=== PATIENT | male | born 1955 | race Caucasian/White ===

== ENCOUNTER 2018-09-27 13:58 | Emergency (ER) | payer OTHER, SELFPAY ==
[2018-09-27 14:02] VITALS: BP 147/78; PULSE 71; RESP 18; TEMP 36.7; O2SAT 99
--- NOTE | 2018-09-27 14:14 | DI.RAD.S_ITS ---
PROCEDURE: XR CHEST 1V INDICATIONS: arrhythmia TECHNIQUE: One view of the chest was acquired. COMPARISON: None. FINDINGS: Surgical changes and devices: None. Lungs and pleura: No acute consolidation however a 6 mm nodule projects in the right lung base, technically indeterminate. No pleural effusions or pneumothorax. Mediastinum: Mediastinal contours appear normal. Heart size is normal. Bones and chest wall: No suspicious bony lesions. Overlying soft tissues appear unremarkable. IMPRESSION: No acute disease. Indeterminate subcentimeter nodular opacity projecting in the right lung base. Recommend followup with PA and lateral chest radiographs in 6 months to exclude early metastatic or malignant nodule. Dictated by: Paramjit Padilla M.D. on 09/27/2018 at 13:32 Approved by: Paramjit Padilla M.D. on 09/27/2018 at 13:36
[2018-09-27 14:26] LABS: Add Manual Diff / Slide Review NO; Basophils Absolute Auto 0 /uL (0-100); Basophils Percent Auto 0.6 % (0-2); Eosinophils Absolute Auto 0 /uL (0-450); Eosinophils Percent Auto 0.8 % (2-4); Hematocrit 42.2 % (41-53); Hemoglobin 14.6 g/dL (13.5-17.5); Lymphocytes Absolute Auto 1000 /uL (1100-4500); Lymphocytes Percent Auto 15.2 % (25-40); Mean Corpuscular HGB Conc 34.5 % (30-36); Mean Corpuscular Hemoglobin 28.1 PG (26-34); Mean Corpuscular Volume 81.5 fL (80-100); Monocytes Absolute Auto 900 /uL (0-900); Monocytes Percent Auto 13.2 % (3-14); Neutrophils Absolute Auto 4500 /uL (1500-7000); Neutrophils Percent Auto 70.2 % (50-75); Platelet Count 233 X10^3/uL (150-400); Red Blood Cell Count 5.18 X10^6/uL (4.5-5.9); White Blood Cell Count 6.5 X10^3/uL (4.5-11.0)
[2018-09-27 14:36] LABS: BUN Creatinine Ratio 23.3 (6-22); Blood Urea Nitrogen 21 mg/dL (9-20); Calcium 9.6 mg/dL (8.4-10.2); Carbon Dioxide 29 mmol/L (22-32); Chloride 104 mmol/L (98-107); Creatine Kinase 75 U/L (55-170); Estimated Glomerular Filt Rate > 60.0 mL/min (>60); Glucose 91 mg/dL (80-110); HEMOLYSIS < 15 (0-50); Magnesium 2.2 mg/dL (1.6-2.3); Potassium 4.1 mmol/L (3.4-5.1); Sodium 138 mmol/L (137-145)
[2018-09-27 14:48] LABS: Troponin I < 0.012 ng/mL (0.01-0.034)
--- NOTE | 2018-09-27 15:00 | ED.ARRPALP ---
HPI - Arrhythmia/Palpitations General Chief Complaint: Arrhythmia/Palpitations Stated Complaint: AFIB Time Seen by Provider: 09/27/18 14:59 Source: patient Mode of arrival: ambulatory Limitations: no limitations History of Present Illness HPI narrative: This is a 63-year-old male comes to the emergency department for complaint of fluttering in his chest. States occasionally he will have symptoms, he states usually less than 1 minute. But today patient episode that did not resolve. The e commerce marketing analyst saw him did EKG that looked like AFib sent him to the clinic on [facility]. They did EKG saw AFib. Told patient to come to emergency department here. Patient denies any syncope, no dizziness, no chest pain or shortness of breath. No nausea no vomiting. Sometimes feel little sweaty or hot but not at this time. He denies any swelling in his lower extremities. No issues with bowel movements or urination. Patient's Dr. Jung the about 2 weeks ago and had a Holter monitor which he got the report but no in reviewed the report with him. There was no AFib noted but some runs of either P 80 your normal sinus ventricular tachycardia. Patient states he takes lisinopril for blood pressure. He denies any surgeries. No allergies. No tobacco. He does drink about 3 cups daily and occasionally more of coffee. He normally has 1 alcoholic drink daily. Related Data Home Medications Medication Instructions Recorded Confirmed lisinopril 20 mg PO DAILY 09/27/18 Allergies Allergy/AdvReac Type Severity Reaction Status Date / Time No Known Drug Allergies Allergy Verified 09/27/18 14:02 Review of Systems Review of Systems ROS Unobtainable: All systems reviewed & are unremarkable except as noted in HPI and below Constitutional Denies chills, Denies fever(s), Denies lethargy and Denies weakness Cardiovascular Denies chest pain, Denies chest pain with activity, Denies syncope, Reports rapid heart rate, Denies edema, Denies irregular heart rhythm, Denies lightheadedness, Denies palpitations, Denies dyspnea, Denies dyspnea on exertion and Denies orthopnea Respiratory Denies chest congestion, Denies cough, Denies dyspnea and Denies dyspnea on exertion Gastrointestinal Gastrointestinal: Denies abdominal pain, Denies change in bowel habits, Denies diarrhea, Denies nausea and Denies vomiting Genitourinary Denies hematuria, Denies flank pain, Denies urinary hesitancy, Denies urinary incontinence and Denies urinary urgency Neurologic Denies syncope and Denies weakness Endocrine Denies palpitations [facility] Medical History (Updated 09/27/18 @ 16:16 by Andreia Glass DO) Hypertension (Chronic) Social History Smoking Status: Never smoker Social History (Updated 09/27/18 @ 16:12 by Andreia Glass DO) marital status: details: Lives on [employer]. Smoking Status: Never smoker alcohol intake: current substance use type: does not use Exam Narrative Exam Narrative: GENERAL: Alert and oriented x three, well-nourished, well-appearing male in no acute distress. HEENT: Head normocephalic, atraumatic, EOMI, pupils reactive, face symmetric, moist mucous membranes NECK: Supple, full range of motion CARDIOVASCULAR: Regular rate and rhythm without murmurs, rubs or gallops. No edema. RESPIRATORY: Breath sounds equal bilaterally, no wheezes rales or rhonchi. ABDOMEN: Soft, nontender. Normoactive bowel sounds all 4 quadrants. No guarding or rebound, rigidity, no mass : No CVA tenderness EXTREMITIES: Normal range of motion. Neurovascularly intact NEUROLOGICAL: Cranial nerves II through XII grossly intact. Moving all extremities SKIN: Warm, dry, no petechiae, no rashes or lesions. Initial Vital Signs Initial Vital Signs: Vital Signs Temperature 98.1 F 09/27/18 14:02 Pulse Rate 71 09/27/18 14:02 Respiratory Rate 18 09/27/18 14:02 Blood Pressure 147/78 H 09/27/18 14:02 Pulse Oximetry 99 09/27/18 14:02 Scores CHADS-VASc Congestive heart failure: no Hypertension: yes Age 75 years or older: no Diabetes mellitus: no Stroke, TIA, or TE: no Vascular disease: no Age 65 to 74 years: no Sex category (female): Male CHADS-VASc Score: 1 Course Orders Ordered: ED Orders 09/27/18 14:04 EKG-12 Lead Stat 09/27/18 14:14 XR chest 1V Stat 09/27/18 14:16 Basic Metabolic Panel Stat Complete Blood Count AUTO DIFF Stat Magnesium Stat Thyroid Stimulating Hormone Stat Troponin & CK Cardiac Panel Stat Discontinued Medications Sodium Chloride (Normal Saline 0.9%) 1,000 mls @ 150 mls/hr IV CONT ALISHA Vital Signs - 8 hr 09/27/18 14:02 09/27/18 15:02 09/27/18 16:00 Temperature 98.1 F Pulse Rate 71 66 67 Respiratory Rate 18 14 20 Blood Pressure 147/78 H Blood Pressure [Left Arm] 129/77 143/86 H Pulse Oximetry 99 98 99 MDM - Arrhythmia/Palpitations Lab Data Attestation: I reviewed the patient's lab results. Result diagrams: 09/27/18 14:16 09/27/18 14:16 Lab Results 09/27/18 09/27/18 09/27/18 Range/Units 14:16 14:16 14:16 WBC 6.5 (4.5-11.0) X10^3/uL RBC 5.18 (4.5-5.9) X10^6/uL Hgb 14.6 (13.5-17.5) g/dL Hct 42.2 (41-53) % MCV 81.5 (80-100) fL MCH 28.1 (26-34) PG MCHC 34.5 (30-36) % RDW 13.0 (11.6-14.8) % Plt Count 233 (150-400) X10^3/uL Neut % (Auto) 70.2 (50-75) % Lymph % (Auto) 15.2 L (25-40) % [place] % (Auto) 13.2 (3-14) % Eos % (Auto) 0.8 L (2-4) % Baso % (Auto) 0.6 (0-2) % Neut # (Auto) 4500 (8226-7344) /uL Lymph # (Auto) 1000 L (6200-5724) /uL [place] # (Auto) 900 (0-900) /uL Eos # (Auto) 0 (0-450) /uL Baso # (Auto) 0 (0-100) /uL Sodium 138 (137-145) mmol/L Potassium 4.1 (3.4-5.1) mmol/L Chloride 104 (98-107) mmol/L Carbon Dioxide 29 (22-32) mmol/L BUN 21 H (9-20) mg/dL Creatinine 0.90 (0.66-1.25) mg/dL Estimated GFR > 60.0 (>60) mL/min BUN/Creatinine Ratio 23.3 H (6-22) Glucose 91 (80-110) mg/dL Calcium 9.6 (8.4-10.2) mg/dL Magnesium 2.2 (1.6-2.3) mg/dL Total Creatine Kinase 75 (55-170) U/L CK-MB (CK-2) TNP CK-MB (CK-2) Rel Index TNP Troponin I < 0.012 (0.01-0.034) ng/mL TSH 1.27 (0.47-4.68) uIU/mL Imaging Data Chest x-ray: Radiologist's impression: [address] [address] XRay Report Signed Patient: Eduardo Lay#: [id number] : 5Acct:[id number] Age/Sex: 63 / MDate of Service: 09/27/18 Loc: ED Accession Number: [id number] Procedure: XR chest 1V Ordering Provider: Andreia Glass D.O. PROCEDURE: XR CHEST 1V INDICATIONS: arrhythmia TECHNIQUE: One view of the chest was acquired. COMPARISON: None. FINDINGS: Surgical changes and devices: None. Lungs and pleura: No acute consolidation however a 6 mm nodule projects in the right lung base, technically indeterminate. No pleural effusions or pneumothorax. Mediastinum: Mediastinal contours appear normal. Heart size is normal. Bones and chest wall: No suspicious bony lesions. Overlying soft tissues appear unremarkable. IMPRESSION: No acute disease. Indeterminate subcentimeter nodular opacity projecting in the right lung base. Recommend followup with PA and lateral chest radiographs in 6 months to exclude early metastatic or malignant nodule. Dictated by: Paramjit Padilla M.D. on 09/27/2018 at 13:32 Approved by: Paramjit Padilla M.D. on 09/27/2018 at 13:36 ECG Data Attestation: I personally reviewed and interpreted this ECG as follows: Prior ECG tracings: not available for review Interpretation: Sinus rhythm with sinus arrhythmia. Rate of 68 [place] 164 QRS [address] changes appreciated. MDM Narrative Medical decision making narrative: Spoke with Cardiology through Dr. Piña at the office. Patient's Chads-Vasc score is 1. He did not recommend any anticoagulation at this time. We also reviewed patient's Holter monitor, which they have access to. Initially we talked about doing metoprolol 25 mg twice daily but with patient's low heart rate in the 60s typically will hold. They would like to follow up with patient, plan to get an echo and then the figure out medication treatment. Discussed with patient and they are comfortable witht he plan. Will call Sunday morning for appointment. Plan to return if prolonged and/or recurrent symptoms. Discharge Plan Departure Patient Disposition: Home Clinical Impression: Paroxysmal A-fib Discharge Date/Time: 09/27/18 16:41 Interventions: ED Discharge Assessment Last Done: 09/27/18 16:39 Instructions: DI for Atrial Fibrillation Activity Restrictions/Additional Instructions: Follow-up with Cardiology, call Sunday for an appointment. The office should be aware that she do need follow-up. Continue home medications as prescribed. Return to the emergency department for worsening symptoms, passing out, new chest pain, shortness of breath, persistent fast heartbeat, persistent vomiting, swelling in her lower extremities or other new or concerning symptoms. Prescriptions: No Action lisinopril 20 mg Tablet 20 mg PO DAILY RF: 0 Referrals: Wayne Estes MD [Non-Staff] - Jordin Varma MD [Primary Care Provider] -
[2018-09-27 15:02] VITALS: BP 129/77; PULSE 66; RESP 14; O2SAT 98
[2018-09-27 15:18] LABS: Thyroid Stimulating Hormone 1.27 uIU/mL (0.47-4.68)
--- NOTE | 2018-09-27 15:33 | PC.NURSE ---
pt reports waking up this morning with fluttering in chest. Denies any pain. Was evaluated by medics which he stated was in Afib. Was then seen by provider this morning with an EKG showing afib. Reports fluttering is intermittent.
--- NOTE | 2018-09-27 15:38 | ED_ITS ---
HPI - Arrhythmia/Palpitations General Chief Complaint: Arrhythmia/Palpitations Stated Complaint: AFIB Time Seen by Provider: 09/27/18 14:59 Source: patient Mode of arrival: ambulatory Limitations: no limitations History of Present Illness HPI narrative: This is a 63-year-old male comes to the emergency department for complaint of fluttering in his chest. States occasionally he will have symptoms, he states usually less than 1 minute. But today patient episode that did not resolve. The senior dynamics crm developer saw him did EKG that looked like AFib sent him to the clinic on [facility]. They did EKG saw AFib. Told patient to come to emergency department here. Patient denies any syncope, no dizziness, no chest pain or shortness of breath. No nausea no vomiting. Sometimes feel little sweaty or hot but not at this time. He denies any swelling in his lower extremities. No issues with bowel movements or urination. Patient's Dr. Jung the about 2 weeks ago and had a Holter monitor which he got the report but no in reviewed the report with him. There was no AFib noted but some runs of either P 80 your normal sinus ventricular tachycardia. Patient states he takes lisinopril for blood pressure. He denies any surgeries. No allergies. No tobacco. He does drink about 3 cups daily and occasionally more of coffee. He normally has 1 alcoholic drink daily. Related Data Home Medications Medication Instructions Recorded Confirmed lisinopril 20 mg PO DAILY 09/27/18 Allergies Allergy/AdvReac Type Severity Reaction Status Date / Time No Known Drug Allergies Allergy Verified 09/27/18 14:02 Review of Systems Review of Systems ROS Unobtainable: All systems reviewed & are unremarkable except as noted in HPI and below Constitutional Denies chills, Denies fever(s), Denies lethargy and Denies weakness Cardiovascular Denies chest pain, Denies chest pain with activity, Denies syncope, Reports rapid heart rate, Denies edema, Denies irregular heart rhythm, Denies lightheadedness, Denies palpitations, Denies dyspnea, Denies dyspnea on exertion and Denies orthopnea Respiratory Denies chest congestion, Denies cough, Denies dyspnea and Denies dyspnea on exertion Gastrointestinal Gastrointestinal: Denies abdominal pain, Denies change in bowel habits, Denies diarrhea, Denies nausea and Denies vomiting Genitourinary Denies hematuria, Denies flank pain, Denies urinary hesitancy, Denies urinary incontinence and Denies urinary urgency Neurologic Denies syncope and Denies weakness Endocrine Denies palpitations [facility] Medical History (Updated 09/27/18 @ 16:16 by Andreia Glass DO) Hypertension (Chronic) Social History Smoking Status: Never smoker Social History (Updated 09/27/18 @ 16:12 by Andreia Glass DO) marital status: details: Lives on [employer]. Smoking Status: Never smoker alcohol intake: current substance use type: does not use Exam Narrative Exam Narrative: GENERAL: Alert and oriented x three, well-nourished, well- appearing male in no acute distress. HEENT: Head normocephalic, atraumatic, EOMI, pupils reactive, face symmetric, moist mucous membranes NECK: Supple, full range of motion CARDIOVASCULAR: Regular rate and rhythm without murmurs, rubs or gallops. No edema. RESPIRATORY: Breath sounds equal bilaterally, no wheezes rales or rhonchi. ABDOMEN: Soft, nontender. Normoactive bowel sounds all 4 quadrants. No guarding or rebound, rigidity, no mass : No CVA tenderness EXTREMITIES: Normal range of motion. Neurovascularly intact NEUROLOGICAL: Cranial nerves II through XII grossly intact. Moving all extremities SKIN: Warm, dry, no petechiae, no rashes or lesions. Initial Vital Signs Initial Vital Signs: Vital Signs Temperature 98.1 F 09/27/18 14:02 Pulse Rate 71 09/27/18 14:02 Respiratory Rate 18 09/27/18 14:02 Blood Pressure 147/78 H 09/27/18 14:02 Pulse Oximetry 99 09/27/18 14:02 Scores CHADS-VASc Congestive heart failure: no Hypertension: yes Age 75 years or older: no Diabetes mellitus: no Stroke, TIA, or TE: no Vascular disease: no Age 65 to 74 years: no Sex category (female): Male CHADS-VASc Score: 1 Course Orders Ordered: ED Orders 09/27/18 14:04 EKG-12 Lead Stat 09/27/18 14:14 XR chest 1V Stat 09/27/18 14:16 Basic Metabolic Panel Stat Complete Blood Count AUTO DIFF Stat Magnesium Stat Thyroid Stimulating Hormone Stat Troponin & CK Cardiac Panel Stat Discontinued Medications Sodium Chloride (Normal Saline 0.9%) 1,000 mls @ 150 mls/hr IV CONT ALISHA Vital Signs - 8 hr 09/27/18 14:02 09/27/18 15:02 09/27/18 16:00 Temperature 98.1 F Pulse Rate 71 66 67 Respiratory Rate 18 14 20 Blood Pressure 147/78 H Blood Pressure [Left Arm] 129/77 143/86 H Pulse Oximetry 99 98 99 MDM - Arrhythmia/Palpitations Lab Data Attestation: I reviewed the patient's lab results. Result diagrams: 09/27/18 14:16 09/27/18 14:16 Lab Results 09/27/18 09/27/18 09/27/18 Range/Units 14:16 14:16 14:16 WBC 6.5 (4.5-11.0) X10^3/uL RBC 5.18 (4.5-5.9) X10^6/uL Hgb 14.6 (13.5-17.5) g/dL Hct 42.2 (41-53) % MCV 81.5 (80-100) fL MCH 28.1 (26-34) PG MCHC 34.5 (30-36) % RDW 13.0 (11.6-14.8) % Plt Count 233 (150-400) X10^3/uL Neut % (Auto) 70.2 (50-75) % Lymph % (Auto) 15.2 L (25-40) % [place] % (Auto) 13.2 (3-14) % Eos % (Auto) 0.8 L (2-4) % Baso % (Auto) 0.6 (0-2) % Neut # (Auto) 4500 (8933-5936) /uL Lymph # (Auto) 1000 L (6617-1222) /uL [place] # (Auto) 900 (0-900) /uL Eos # (Auto) 0 (0-450) /uL Baso # (Auto) 0 (0-100) /uL Sodium 138 (137-145) mmol/L Potassium 4.1 (3.4-5.1) mmol/L Chloride 104 (98-107) mmol/L Carbon Dioxide 29 (22-32) mmol/L BUN 21 H (9-20) mg/dL Creatinine 0.90 (0.66-1.25) mg/dL Estimated GFR > 60.0 (>60) mL/min BUN/Creatinine Ratio 23.3 H (6-22) Glucose 91 (80-110) mg/dL Calcium 9.6 (8.4-10.2) mg/dL Magnesium 2.2 (1.6-2.3) mg/dL Total Creatine Kinase 75 (55-170) U/L CK-MB (CK-2) TNP CK-MB (CK-2) Rel Index TNP Troponin I < 0.012 (0.01-0.034) ng/mL TSH 1.27 (0.47-4.68) uIU/mL Imaging Data Chest x-ray: Radiologist's impression: [address] [address] XRay Report Signed Patient: Eduardo Lay#: [id number] : 5Acct:[id number] Age/Sex: 63 / MDate of Service: 09/27/18 Loc: ED Accession Number: [id number] Procedure: XR chest 1V Ordering Provider: Andreia Glass D.O. PROCEDURE: XR CHEST 1V INDICATIONS: arrhythmia TECHNIQUE: One view of the chest was acquired. COMPARISON: None. FINDINGS: Surgical changes and devices: None. Lungs and pleura: No acute consolidation however a 6 mm nodule projects in the right lung base, technically indeterminate. No pleural effusions or pneumothorax. Mediastinum: Mediastinal contours appear normal. Heart size is normal. Bones and chest wall: No suspicious bony lesions. Overlying soft tissues appear unremarkable. IMPRESSION: No acute disease. Indeterminate subcentimeter nodular opacity projecting in the right lung base. Recommend followup with PA and lateral chest radiographs in 6 months to exclude early metastatic or malignant nodule. Dictated by: Paramjit Padilla M.D. on 09/27/2018 at 13:32 Approved by: Paramjit Padilla M.D. on 09/27/2018 at 13:36 ECG Data Attestation: I personally reviewed and interpreted this ECG as follows: Prior ECG tracings: not available for review Interpretation: Sinus rhythm with sinus arrhythmia. Rate of 68 [place] 164 QRS 88 QTC 374. 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 MDM Narrative Medical decision making narrative: Spoke with Cardiology through Dr. Piña at the office. Patient's Chads-Vasc score is 1. He did not recommend any anticoa gulation at this time. We also reviewed patient's Holter monitor, which they have access to. Initially we talked about doing metoprolol 25 mg twice daily but with patient's low heart rate in the 60s typically will hold. They would like to follow up with patient, plan to get an echo and then the figure out medication treatment. Discussed with patient and they are comfortable witht he plan. Will call Sunday for appointment. Plan to return if prolonged and/or recurrent symptoms. Discharge Plan Departure Patient Disposition: Home Clinical Impression: Paroxysmal A-fib Discharge Date/Time: 09/27/18 16:41 Interventions: ED Discharge Assessment Last Done: 09/27/18 16:39 Instructions: DI for Atrial Fibrillation Activity Restrictions/Additional Instructions: Follow-up with Cardiology, call Sunday for an appointment. The office should be aware that she do need follow-up. Continue home medications as prescribed. Return to the emergency department for worsening symptoms, passing out, new chest pain, shortness of breath, persistent fast heartbeat, persistent vomiting, swelling in her lower extremities or other new or concerning symptoms. Prescriptions: No Action lisinopril 20 mg Tablet 20 mg PO DAILY RF: 0 Referrals: Wayne Estes MD [Non-Staff] - Jordin Varma MD [Primary Care Provider] -
[2018-09-27 16:00] VITALS: BP 143/86; PULSE 67; RESP 20; O2SAT 99
== END 2018-09-27 16:41 | disposition home or self-care (01) ==
PROVIDERS: Emergency Provider Emergency Medicine; PCP Family Medicine
DX: I48.0 Paroxysmal atrial fibrillation (principal)
CPT/HCPCS: 36415; 71045; 80048; 82550; 83735; 84443; 84484; 85025; 93005; 99282; 99285

== ENCOUNTER 2018-10-22 10:24 | Day surgery (SDC) | payer OTHER, SELFPAY ==
[2018-10-22] MEDS: SODIUM CHLORIDE 0.9% 1,000 ML 200 ML IV ×2 (13:24→15:40)
[2018-10-22 13:25] VITALS: BP 132/84; PULSE 70; RESP 16; TEMP 36.4; O2SAT 99; BMI 25.7
--- NOTE | 2018-10-22 15:03 | PM.HP.1 ---
History of Present Illness Date Patient Seen: 10/22/18 Time Patient Seen: 15:03 Chief complaint: [id number] SCREENING COLONOSCOPY Narrative: 63-year-old man with first-degree relative, mother with colon cancer presents overdue for his regular screening colonoscopy. Last colonoscopy was performed 11 years ago at outside facility there was 1 polyp removed for per his report. He is currently feeling well without intestinal complaints, tolerated his prep No family history of inflammatory bowel disease Patient History Medical History (Updated 10/12/18 @ 00:00 by ) Hypertension (Chronic) Family & Social History Social History: household members spouse Tobacco & Substance use: Smoking Status Never smoker alcohol intake current alcohol intake frequency a few times a week Substance Use Type does not use Meds Home Medications Medication Instructions Recorded Confirmed Type lisinopril 20 mg PO DAILY 09/27/18 10/22/18 History aspirin [Aspirin Low Dose] 324 mg PO DAILY 10/22/18 10/22/18 History Allergies Allergy/AdvReac Type Severity Reaction Status Date / Time No Known Drug Allergies Allergy Verified 10/22/18 13:32 Review of Systems Constitutional Constitutional: Denies fever(s) Eyes Eyes: Denies bulging eyes ENT Ears, Nose, Mouth, and Throat: No lip swelling Cardiovascular Cardiovascular: Denies generalize swelling Respiratory Respiratory: Denies stridor Gastrointestinal Gastrointestinal: Denies coffee ground emesis Musculoskeletal Musculoskeletal: Denies loss of height Integumentary/Breasts Skin/Breast: Denies wounds Neurologic Neurologic: Denies abnormal speech and Denies confusion Psychiatric Psychiatric: Denies confusion Endocrine Endocrine: Denies deepening of the voice Hematologic/Lymphatic Hematologic/Lymphatic: Denies lymphadenopathy Allergic/Immunologic Allergic/Immunologic: Denies lip swelling Exam Vital Signs (past 8 hours): - 10/22/18 13:25 Temperature 97.6 F Pulse Rate 70 Respiratory Rate 16 Blood Pressure 132/84 Pulse Oximetry 99 Oxygen Delivery Method Room Air Const General: cooperative and healthy appearing Orientation: alert HENMT Head: normal to inspection Nose: nares normal Mouth: oral mucosae normal and lip normal Eyes Eyelids: eyelids normal Conjunctivae: conjunctivae normal Sclera: sclerae normal Neck Neck: supple and other (No thyromegally) Chest Chest: other (LCTAB , regular respiratory effort) Cardio Rhythm: regular rhythm Heart Sounds: S1 normal, S2 normal, no gallops, no murmurs and no rubs GI Other: Abdomen soft nontender nondistended Skin General: no rashes or lesions noted Neuro General: alert and awake Psych Appearance: grossly normal Affect: normal affect Assessment & Plan Assessment & Plan narrative: 63-year-old man overdue for screening colonoscopy Colonoscopy today Risks of procedure including , perforation, hypoxia, missed lesion all discussed All questions answered Patient rated proceed
[2018-10-22] MEDS: fentaNYL 250 MCG/5 ML INJ IV (16:06)
[2018-10-22] MEDS: MIDAZOLAM 5 MG/5 ML VIAL IV (16:06)
--- NOTE | 2018-10-22 16:17 | PM.OP.ENDO ---
Operative Date/Time/Diagnoses Date of procedure: 10/22/18 Time of procedure: 16:17 Pre-op diagnosis: Screening colonoscopy Post-op diagnosis: same Procedure & Clinicians Study performed: Complete screening colonoscopy Same procedure as scheduled: Yes Indications: 63-year-old man with first-degree relative with history of colon cancer/mother. Presents for overdue screening colonoscopy last performed 11 years ago. Surgeon: Hammad Hines Procedure Notes SCOAP/Timeout: completed Procedure in detail: Patient was brought to the endoscopy suite a time-out was completed. He was sedated with a total over the entire course of the procedure with 7 mg of midazolam and 125 micro g of fentanyl. A digital rectal exam was performed without lesions identified. 160 cm colonoscope was introduced through the anus and passed through the rectum folds of the colon which was very tortuous. The colon itself was found to be long and substantially redundant -i.e. Reach the end of the colonoscope still in the transverse colon, the scope was withdrawn strained and readvanced at least half a dozen different times. Laundry Folder cope stiffener was utilized. The placement was placed in the prone as well as supine position. Eventually with sequential withdrawing and re-advancement I was able to progress to the level of the cecum. Ileocecal valve was identified as was the crows foot. The scope was then slowly withdrawn. No mucosal lesions were identified. At the level of the distal rectum the scope was retroflexed. Again no mucosal lesions were identified Prep was adequate Scope withdrawal time: 13 minutes Sedation minutes: 65 Specimen(s): none sent Complications: none Impression: 1. Long tortuous colon without lesions Recommendations: Colonscopy in 5 years Plan for aftercare: Follow-up in 5 years due to primary family member with colon cancer Follow up: as needed Disposition: PACU
--- NOTE | 2018-10-22 16:23 | P.OP.ENDO_ITS ---
Operative Date/Time/Diagnoses Date of procedure: 10/22/18 Time of procedure: 16:17 Pre-op diagnosis: Screening colonoscopy Post-op diagnosis: same Procedure & Clinicians Study performed: Complete screening colonoscopy Same procedure as scheduled: Yes Indications: 63-year-old man with first-degree relative with history of colon cancer/mother. Presents for overdue screening colonoscopy last performed 11 years ago. Surgeon: Hammad Hines Procedure Notes SCOAP/Timeout: completed Procedure in detail: Patient was brought to the endoscopy suite a time-out was completed. He was sedated with a total over the entire course of the procedure with 7 mg of midazolam and 125 micro g of fentanyl. A digital rectal exam was performed without lesions identified. 160 cm colonoscope was introduced through the anus and passed through the rectum folds of the colon which was very tortuous. The colon itself was found to be long and substantially redundant - i.e. Reach the end of the colonoscope still in the transverse colon, the scope was withdrawn strained and readvanced at least half a dozen different times. Tape Controlled Machine Stitcher cope stiffener was utilized. The placement was placed in the prone as well as supine position. Eventually with sequential withdrawing and re- advancement I was able to progress to the level of the cecum. Ileocecal valve was identified as was the crows foot. The scope was then slowly withdrawn. No mucosal lesions were identified. At the level of the distal rectum the scope was retroflexed. Again no mucosal lesions were identified Prep was adequate Scope withdrawal time: 13 minutes Sedation minutes: 65 Specimen(s): none sent Complications: none Impression: 1. Long tortuous colon without lesions Recommendations: Colonscopy in 5 years Plan for aftercare: Follow-up in 5 years due to primary family member with colon cancer Follow up: as needed Disposition: PACU
[2018-10-22 16:28] VITALS: BP 109/66; PULSE 67; RESP 16; TEMP 36.4; O2SAT 99
[2018-10-22 16:33] VITALS: BP 117/72; PULSE 62; RESP 16; O2SAT 99
[2018-10-22 16:43] VITALS: BP 113/72; PULSE 62; RESP 17; O2SAT 97
== END 2018-10-22 16:50 | disposition home or self-care (01) ==
PROVIDERS: PCP Family Medicine; Visit Provider Surgery
PROC: 0DJD8ZZ Inspection of Lower Intestinal Tract, Via Natural or Artificial Opening Endoscopic (ICD-10-PCS; CPT 45378; principal; 2018-10-22 15:00)
DX: Z86.010 Personal history of colon polyps (principal); Z80.0 Family history of malignant neoplasm of digestive organs
CPT/HCPCS: 45378; 99152; 99153; J2250; J3010

== ENCOUNTER → 2019-03-19 12:30 | Outpatient (CLI) | payer OTHER, SELFPAY ==
--- NOTE | 2019-03-19 | DI.RAD.S_ITS ---
PROCEDURE: XR CHEST 2V INDICATIONS: Solitary pulmonary nodule TECHNIQUE: 2 views of the chest were acquired. COMPARISON: [facility], CR, XR CHEST 1V, 09/27/2018, 14:25. FINDINGS: Surgical changes and devices: None. Lungs and pleura: Lungs are clear. A previously described 8mm nodular opacity in the right lung base is no longer visualized. No pleural effusions or pneumothorax. Mediastinum: Mediastinal contours are normal. Heart size is normal. Bones and chest wall: No suspicious bony abnormalities. Soft tissues appear unremarkable. IMPRESSION: No acute disease. Previously described right basilar nodular opacity no longer visualized. Dictated by: Paramjit Padilla M.D. on 03/19/2019 at 14:32 Approved by: Paramjit Padilla M.D. on 03/19/2019 at 14:34
== END ==
PROVIDERS: PCP Family Medicine; Visit Provider Family Medicine
DX: R91.1 Solitary pulmonary nodule (principal)
CPT/HCPCS: 71046

== ENCOUNTER → 2020-03-09 13:36 | Outpatient (CLI) | payer OTHER, SELFPAY ==
[2020-03-09 17:57] LABS: Add Manual Diff / Slide Review NO; Basophils Absolute Auto 0 /uL (0-100); Basophils Percent Auto 0.8 % (0-2); Eosinophils Absolute Auto 100 /uL (0-450); Eosinophils Percent Auto 1.7 % (2-4); Hematocrit 40.7 % (41-53); Hemoglobin 13.7 g/dL (13.5-17.5); Lymphocytes Absolute Auto 1100 /uL (1100-4500); Lymphocytes Percent Auto 18.8 % (25-40); Mean Corpuscular HGB Conc 33.7 % (30-36); Mean Corpuscular Hemoglobin 27.9 PG (26-34); Mean Corpuscular Volume 82.9 fL (80-100); Monocytes Absolute Auto 900 /uL (0-900); Monocytes Percent Auto 14.9 % (3-14); Neutrophils Absolute Auto 3900 /uL (1500-7000); Neutrophils Percent Auto 63.8 % (50-75); Platelet Count 272 X10^3/uL (150-400); Red Blood Cell Count 4.91 X10^6/uL (4.5-5.9); Red Cell Distribution Width 13.1 % (11.6-14.8); White Blood Cell Count 6.1 X10^3/uL (4.5-11.0)
== END ==
PROVIDERS: PCP Family Medicine; Referring Provider Family Medicine; Visit Provider Orthopaedic Surgery
DX: Z01.818 Encounter for other preprocedural examination (principal); Z01.812 Encounter for preprocedural laboratory examination
CPT/HCPCS: 36415; 85025; 93005

== ENCOUNTER → 2020-03-29 11:06 | Outpatient (CLI) | payer OTHER, SELFPAY ==
[2020-03-29 13:08] LABS: COVID19 -Nasal RAPID Negative (Negative)
== END ==
PROVIDERS: PCP Family Medicine; Visit Provider Physician Assistant
DX: Z11.59 Encounter for screening for other viral diseases (principal)
CPT/HCPCS: 87635

== ENCOUNTER 2020-03-31 08:39 | Day surgery (SDC) | payer MEDICARE, OTHER, SELFPAY ==
[2020-03-29 09:44] VITALS: BMI 26.8
[2020-03-31] VITALS (15 sets, daily range): BP systolic 107–149; BP diastolic 59–79; PULSE 55–75; RESP 11–18; TEMP 36.3–36.9; O2SAT 95–99; BMI 26.6
--- NOTE | 2020-03-31 08:49 | DI.RAD.S_ITS ---
PROCEDURE: XR PELVIS 1-2V INDICATIONS: right total hip TECHNIQUE: 1 view of the pelvis acquired. COMPARISON: None. FINDINGS: Bones: Patient is status post right hip arthroplasty, with hardware components in expected positions. The hip joint appears congruent. The visualized bony structures appear intact. Soft tissues: Overlying postoperative changes are noted. No suspicious soft tissue densities. IMPRESSION: Expected immediate postoperative appearance, status post total right hip arthroplasty. Dictated by: Jono Sotomayor M.D. on 03/31/2020 at 13:34 Approved by: Jono Sotomayor M.D. on 03/31/2020 at 13:35
[2020-03-31] MEDS: PREGABALIN 75 MG CAPSULE PO (09:15)
[2020-03-31] MEDS: ACETAMINOPHEN 325 MG TABLET 975 MG PO (09:15)
[2020-03-31] MEDS: CELECOXIB 200 MG CAPSULE PO (09:15)
[2020-03-31] MEDS: LACTATED RINGERS 1,000 ML 42 ML IV (09:38)
--- NOTE | 2020-03-31 10:29 | PM.PREOP ---
Pre-operative Note COVID-19 COVID-19 status: Negative Result date/Date tested (Pos, Neg/Pending): 03/30/20 Interval Note History & Physical reviewed/Exam performed by Physician: Yes Changes to H&P: No
[2020-03-31] MEDS: CEFAZOLIN 2 GM/100 ML FROZ.PIGGY IV ×2 (10:58→19:22)
[2020-03-31] MEDS: TRANEXAMIC ACID 1,000 MG VIAL 2000 MG INJ ×2 (11:10→12:16)
--- NOTE | 2020-03-31 11:31 | SUR.OPER ---
Lateral on padded OR bed. Gel axillary roll. Arms secured on padded armboard with pillow supporting top arm. Padded hip positioner braces x4 - anterior and posterior chest and pelvis. Additional gel pad used anterior pelvis. Gel pad under bottom leg from knee to foot and secured with tape over sheet.
[2020-03-31] MEDS: ROPIVACAINE 0.5% PF 5 MG/ML 20ML VIAL 60 ML INJ (11:36)
[2020-03-31] MEDS: MORPHINE 4 MG/ML INJ INJ (11:36)
[2020-03-31] MEDS: KETOROLAC 30 MG/ML VIAL IV (11:37)
--- NOTE | 2020-03-31 12:32 | P.OP_ITS ---
Operative Date/Time/Diagnoses Date of procedure: 03/31/20 Time of procedure: 12:32 Pre-op diagnosis: Right hip degenerative joint disease Post-op diagnosis: same Procedure & Clinicians Procedure: Right total hip arthroplasty (CPT code 66881 with library technical assistant) Same procedure as scheduled: Yes Indications: Patient is an awl 64-year-old male with severe right hip DJD. The patient has pain with activities and at rest, limited ambulation and activity tolerance, difficulties with ADLs, and failure of conservative treatment. We have discussed the nature of condition, treatment options, risks and benefits, and patient elects to proceed with total hip arthroplasty and gives informed consent. Surgeon: Shaheed Nielsen Medical Records Secretary: José Miguel Tesfaye Anesthesia Type: General and Spinal Operative Notes Closure Type: primary Specimen(s): none sent Prosthetic devices, grafts, tissues, transplants, or devices: Acetabulum: Shah [employer] Nephew R3 acetabular component size 54 mm Femoral component: Shah [employer]hew Anthology stem size 7 with standard offset Femoral head: 36 mm + 4 Oxinium Estimated Blood Loss (mL): 150 Procedure in detail: After satisfaction induction of anesthetic, and administration of IV antibiotics, the patient was positioned in the lateral decubitus position with all bony prominences well padded and pelvic position secured using a hip leaf tinner positioning device. Right hip and lower extremity prepped and draped in the usual sterile fashion, 1st dose of intravenous tranexamic acid was administered, then a longitudinal incision was created centered over the greater trochanter and carried sharply through the skin and subcutaneous tissues down to the fascia chelsi which was divided longitudinally and retracted with a Charnley retractor. External rotators visualize, cut, tagged, and retracted posteriorly, then the capsule was cut in a T-type fashion with the corners tagged and retracted. Hip was dislocated and femoral neck cut made according to preoperative templating. Acetabular retractors then placed, and the acetabular labrum and osteophytes were excised. The acetabulum was then sequentially reamed to 53 mm with an excellent circumferential ream and fit with the trial. The trial component was removed and a permanent size 54 mm Shah and Nephew R3 acetabular component was selected, positioned, and impacted with satisfactory position and fixation achieved. Significant anterior inferior and posterior osteophyte removed with the osteotome. Permanent liner was then inserted with the elevated lip directed posteriorly. Soft tissue then removed off the lateral femoral neck in the lateral neck was entered using a box osteotome. T-handled reamers placed down the canal followed by sequential broaching to 7 with the final broach left in place for trial reduction which demonstrated good leg length, range of motion, and stability characteristics with a 36 mm +0 trial ball, so another trial was done with a +4 trial ball which yielded excellent leg length range of motion and stability characteristics.. The trial and broach were removed, and a permanent size 7 Shah [employer] Nephew Anthology stem was selected and inserted with excellent position and fixation achieved. Another trial reduction yielded the above characteristics so the trial ball was exchanged for a permanent 36 mm +4 Oxinium ball. The hip was irrigated and reduced and excellent leg length range of motion and stability characteristics were achieved and maintained. Periarticular tissues were infiltrated with ropivacaine, morphine, and Toradol l. The hip was copiously irrigated, and the capsule repaired with #2 Ethibond, and the piriformis was repaired back to the greater trochanter with the same. Fascia chelsi closed with interrupted #1 Ethibond sutures, and the subcutaneous tissues were closed in 2 layers of 0 Vicryl and 2 0 Vicryl. Skin was closed with ZipLine closure and sterile dressings applied. Second dose of tranexamic acid was administered intravenously, and the anesthetic was terminated. Complications: none Post-operative Condition: stable Disposition: PACU Plan for aftercare: Patient will be admitted to the acute care jain, and anticipate discharge on postop day 1 with follow-up in office in 10-14 days. Outpatient physical therapy will be arranged and patient will continue to observe posterior hip precautions. Patient will continue use of aspirin for DVT prophylaxis postop.
[2020-03-31] MEDS: LACTATED RINGERS 1,000 ML 125 ML IV ×2 (14:09→22:32)
[2020-03-31] MEDS: ACETAMINOPHEN 325 MG TABLET 650 MG PO ×2 (14:11→20:38)
--- NOTE | 2020-03-31 14:24 | PC.NURSE ---
Pt to room 218 via bed - Pt is awake, alert, and oriented x 3. Spouse Suzanne is at the bedside. Pt oriented to room, call light, tv controls, and bed controls. Pt is aware that he must not get up without staff assistance. SCD's are on and running. IVF infusing as ordered. Bed alarm on for safety. Pt has had coffee and a snack and denies pain, nausea, or shortness of breath. Pt denies needs at this time and agrees to call for assistance as needed.
[2020-03-31] MEDS: dilTIAZem CD 120 MG CAP PO (17:18)
[2020-03-31] MEDS: DOCUSATE 100 MG CAPSULE PO (20:38)
[2020-03-31] MEDS: ASPIRIN EC 81 MG TABLET PO (20:38)
--- NOTE | 2020-03-31 22:05 | PC.NURSE ---
A&OX3. 96% RA. minimal pain 05/09. Nancy cdi. Ice pack. pt ambulated to the bathroom w/SBA-FWW. voiding without difficulty. CMS+. PP++. call light in reach.
[2020-04-01] MEDS: CEFAZOLIN 2 GM/100 ML FROZ.PIGGY IV (02:52)
[2020-04-01 05:59] LABS: Hematocrit 36.6 % (41-53); Hemoglobin 12.2 g/dL (13.5-17.5)
[2020-04-01 06:10] VITALS: BP 121/67; PULSE 70; RESP 16; TEMP 36.4; O2SAT 98
[2020-04-01 07:40] VITALS: BP 101/74; PULSE 65; RESP 16; TEMP 37.1; O2SAT 96
--- NOTE | 2020-04-01 08:00 | PM.PN.1 ---
Subjective Subjective Date Patient Seen: 04/01/20 Time Patient Seen: 15:59 Interval history: Patient is POD#1 s/p right posterior ELISA with Dr. Nielsen. Pain has been controlled with Tylenol. He has been mobilizing about the room. Voiding appropriately and tolerating a diet. He has no complaints. No chest pain or shortness of breath. Exam Vital Signs (past 8 hours): - 04/01/20 06:10 Temperature 97.5 F L Pulse Rate 70 Respiratory Rate 16 Blood Pressure 121/67 Pulse Oximetry 98 Oxygen Delivery Method Room Air Oxygen Flow Rate 0 Narrative Exam Narrative: 64 year old male resting in bed, alert and oriented in no acute distress. Dressing is CDI. Patient able to perform straight leg raise. Nerovascularly intact in distal extremity. Calves are soft. Objective Labs Result Diagrams: 04/01/20 05:42 Labs: Laboratory Results - last 24 hr 04/01/20 05:42 Hgb 12.2 L Hct 36.6 L PFSH Medical History BCC (basal cell carcinoma) DJD (degenerative joint disease) Hypertension Osteoarthritis SCC (squamous cell carcinoma) Surgical History Hx of hernia repair (~2005) Social History (Updated 09/27/18 @ 16:12 by Andreia Glass DO) marital status: details: Lives on [address]. household members: spouse Smoking Status: Never smoker alcohol intake: current substance use type: does not use Assessment & Plan Assessment & Plan narrative: -Patient is POD#1 s/p total hip. -Doing well postop. He will mobilize today with PT. -Will continue Tylenol for pain. Script for Oxycodone provided for discharge. -ASA 81mg BID for DVT prophylaxis. -Discharge to home later today if able to mobilize with PT. Quality VTE Deep Vein Thrombosis/Pulmonary Embolism Present on Admission: No
[2020-04-01 09:02] VITALS: BP 101/74
[2020-04-01] MEDS: ASPIRIN EC 81 MG TABLET PO (09:02)
[2020-04-01] MEDS: lisinopriL 20 MG TABLET PO (09:02)
[2020-04-01] MEDS: ACETAMINOPHEN 325 MG TABLET 650 MG PO (09:03)
--- NOTE | 2020-04-01 09:20 | PT.IIE ---
Current Diagnoses Unilateral primary osteoarthritis, right hip (03/31/20) Surgery Performed Operation Date: 03/31/20 10:45 Actual Procedures p Total Hip Arthroplasty(Right) - Shaheed Nielsen MD Surgical History (Last Updated 03/29/20 @ 10:09 by Sharri Valdovinos RN) Hx of hernia repair (~2005) Medical History (Last Updated 03/29/20 @ 10:09 by Sharri Valdovinos RN) BCC (basal cell carcinoma) DJD (degenerative joint disease) Hypertension Osteoarthritis SCC (squamous cell carcinoma) Physical Therapy Inpatient Evaluation/Re-Eval M1 PT/OT-IP Prior Functional Status Start: 04/01/20 13:51 Freq: NEEDED Status: Active Protocol: Document 04/01/20 09:20 AB (Rec: 04/01/20 13:59 AB [id number]) Medical Review Prior Functional Status Medical History Reviewed Yes Communication able to make needs known Mobility and Gait pt stated that he is independent with all mobilities and ambulation without AD Social History Household Members spouse Living Arrangements House Number of Floors (Floors) Two Floors Number of Stairs To Enter/Railing? 2 platform steps to enter has 13 steps with R rail to his office Home Environment High Toilet,Walk in Shower Home Equipment Front Wheel Walker,Straight Cane,Raised Toilet Seat w/ Armrests Employment Status Retired M2 PT-IP Current Condition Start: 04/01/20 13:51 Freq: NEEDED Status: Active Protocol: Document 04/01/20 09:20 AB (Rec: 04/01/20 13:59 AB [email or web address]) Physical Therapy Current Condition Current Condition Evaluation Date 04/01/20 Treatment Diagnosis s/p r ELISA posterior approach; difficulty in walking Onset Date 03/31/20 Precautions Posterior Hip Precautions No Hip Flexion > 90 degrees,No Hip Internal Rotation,No Hip Adduction Weight Bearing Status Weight Bearing Status Weight Bear as Tolerated Allowed Weight Bearing Amount (enter % RLE WBAT or #) (%) M3 PT-IP Subjective Start: 04/01/20 13:51 Freq: NEEDED Status: Active Protocol: Document 04/01/20 09:20 AB (Rec: 04/01/20 13:59 AB [email or web address]) Subjective Physical Therapy Visit Type Type Initial Evaluation Visit Start Time 09:20 Visit Stop Time 10:04 Total Visit Minutes 44 Number of APPLICATION SECURITY CONSULTANT Visits 0 Physical Therapy Visit Comments Patient Comments pt is agreeable to do PT Therapy Pain Assessment Pain When Pain Assessed At Rest Pain Present Pain Present Pain Reported Location Right Hip Intensity 1 Scale Used Numeric (0 - 10) Pain Management Techniques Apply Cold,Distraction, Modification of Treatment,Re- positioning,Timing of Activity with Medications M4 PT-IP Mobility and Gait Start: 04/01/20 13:51 Freq: NEEDED Status: Active Protocol: Document 04/01/20 09:20 AB (Rec: 04/01/20 13:59 AB [id number]) PT-Bed Mobility Assessment Supine to Sit Supine to Sit Standby Assistance Sit to Supine Sit to Supine Standby Assistance Scooting Scooting to Edge of Bed Standby Assistance Scooting Up and Down in Bed Standby Assistance PT-Transfer Assessment Sit to and From Stand Sit to and from Stand Standby Assistance,1 Person Assistance,Use of Upper Extremities Equipment Transfer Assistive Device Gait Belt,Front Wheeled Walker Orthotic/Prosthetic Devices or Brace: No Transfers Transfer Destination Chair,Toilet Transfer Technique ambulated using FWW Transfer Ability Level of Assist Standby Assistance Comments Mobility Comments educated pt and spouse regarding posterior hip precautions. pt completed supine to sit SBA. compelted sit to stand SBA and cues. ambulated in room using FWW SBA. agreed to do stairs. ambulated in the hallway using FWW SBA. completed up/down platform steps CGA and cues. educated spouse on how to assist pt. pt ambulated farther to the stairs and pt completed holding on to R rail with B hands SBA. pt ambulated back to his room using FWW SBA. requested to use the toilet and ambulated to the toilet using FWW SBA. Left pt with spouse. informed nurse regarding pt's mobility. Gait Assessment Gait Gait Assistance Required: Standby Assistance Distance (Feet) 125 Able to Maintain Weight Bearing Status Yes During Gait Assistive Devices Assistive Device Gait Belt,Front Wheeled Walker Gait Deviations General Gait Pattern Antalgic,Decreased Stride Length,Decreased Feet Clearance Factors Limiting Gait Function Factors Limiting Gait Function Decreased Activity Tolerance, Decreased Strength,Limited Range of Motion,Pain,Poor Balance,Poor Safety Awareness Stair Climbing Assessment Evaluation Level of Assist On Stairs Standby Assistance Devices Stair Climbing Assistive Devices Right Railing Technique/Endurance Stair Climbing Direction Ascend and Descend Stair Climbing Technique Step to Step Number of Steps Climbed 3 Query Text: Stair Climbing Set # Repetitions (reps) 2 Comments Stair Climbing Comments pls refer to mobility section PT-Balance Assessment Sitting Balance and Reactions Static Sitting Balance Ability Good Dynamic Sitting Balance Ability Good Standing Balance and Reactions Static Standing Balance Ability Fair Dynamic Standing Balance Ability Fair Device Used FWW M5 PT-IP Objective Assessments Start: 04/01/20 13:51 Freq: NEEDED Status: Active Protocol: Document 04/01/20 09:20 AB (Rec: 04/01/20 13:59 [email or web address]) Orientation Orientation/Cognition Level of Alertness Alert Orientation Name,Place,Situation Memory Description Short Term Impaired Gross Range of Motion Lower Extremity ROM Assessment Within Functional Limits Strength Lower Extremity Strength Assessment Right Impaired Hip 4-/5 Knee 4-/5 Coordination Assessment Gross Coordination Gross Coordination WNL Sensation Assessment Sensation Gross Sensation WNL Muscle Tone Muscle Tone WNL Yes M6 PT-IP Treatment Start: 04/01/20 13:51 Freq: NEEDED Status: Active Protocol: Document 04/01/20 09:20 AB (Rec: 04/01/20 13:59 [email or web address]) Physical Therapy Treatment Education Education Provided Precautions,Weight Bearing Status,Post-Op Packet,Safety M7 PT-IP Assessment and Plan Start: 04/01/20 13:51 Freq: NEEDED Status: Active Protocol: Document 04/01/20 09:20 AB (Rec: 04/01/20 13:59 [email or web address]) PT Summary Assessment and Plan Potential Rehabilitation Potential Good Status of Condition at Evaluation Stable Summary Impairments Pain,ROM,Strength,Balance, Coordination,Sensation,Tone, Cognition,Bed Mobility, Transfers,Gait,Activity Tolerance Assessment Summary pt requiring SBA with mobility and will have spouse to assist him at home. pt plans to go home later today and may go home when medically stable . Goals Bed Mobility Goal Independent Transfer Goal Independent,Front Wheeled Walker Gait Goal Independent,Front Wheel Walker Gait Distance 250 Other Goals up/down 2 platform steps SBA using FWW up/down 10 steps R rail mod I Days to Meet Goals 3 Frequency of Treatment Frequency Of Treatment Twice a Day Treatment Plan Physical Therapy Treatment Plan Bed Mobility Training,Transfer Training,Gait Training, Therapeutic Exercise,Balance Retraining,Post Op Education, Discharge Planning,Hot or Cold Pack,Neuromuscular Re-ed, Coordination Retraining,Manual Therapy Recommendations To Nursing Amount of Assist Needed 1 Person Assist Discharge Recommendations PT Discharge Recommendations Home with Assistance, Outpatient PT Transportation Needs at Discharge Private Vehicle
--- NOTE | 2020-04-01 10:38 | PC.NURSE ---
Dsg to right hip changed to Coversite. HL removed. Went over d/c instructions with Pt and Spouse-discussed d/c meds, time of last dose, reviewed stroke education, s/s of infection and when to call MD. Encouraged fluid intake to prevent constipation or dehydration. Reviewed posterior hip precautions and showering. Pt to follow up as already scheduled with Dr. Nielsen. Pt and Spouse denied further questions and will be taken out via w/c by [facility] to POV with Spouse and all belongings.
--- NOTE | 2020-04-01 11:12 | CM.IDA ---
Initial DCP Assessment Note Pt is a 64 yo male, resident of [place], now POD#1 from right hip surgery w/ Dr Nielsen PCP: Jordin Varma Payer: DANITA/Denise saavedra [place] Reviewed chart, DC order from Ortho has already been initiated this morning. Met w/patient to introduce role. Patient is awaiting his morning therapy session. Patient is indp. at baseline and has planned to return home w/his spouse to assist as needed. Patient feels confident at this time to return home w/family to assist and denies needs from this CRISIS NURSE this morning. No needs expected from DC planning team although will remain available in case this changes today. [place] Sol
== END 2020-04-01 10:47 | disposition home or self-care (01) | DRG 470 ==
LOC: AC 04-01 07:59 → OR 04-05 09:37
PROVIDERS: PCP Family Medicine; Referring Provider Family Medicine; Visit Provider Orthopaedic Surgery
PROC: 0SR90JZ Replacement of Right Hip Joint with Synthetic Substitute, Open Approach (ICD-10-PCS; CPT 27130; principal; 2020-03-31 10:45)
DX: M16.11 Unilateral primary osteoarthritis, right hip (principal); I10 Essential (primary) hypertension; I48.0 Paroxysmal atrial fibrillation
CPT/HCPCS: 27130; 36415; 72170; 82962; 85014; 85018; 97161; 97530; C1776; J0690; J1100; J1885; J2250; J2270; J2405; J2704; J3010

== ENCOUNTER → 2021-03-18 08:23 | Outpatient (CLI) | payer MEDICARE, OTHER, SELFPAY ==
[2020-03-31 13:46] VITALS: BMI 26.6
[2021-03-18 21:05] LABS: COVID19 - ORCAS (NP or Nasal) Negative (Negative)
== END ==
PROVIDERS: PCP Family Medicine; Visit Provider Physician Assistant Medical
DX: U07.1 COVID-19 (principal)
CPT/HCPCS: C9803; U0003

== ENCOUNTER → 2021-03-21 13:34 | Outpatient (CLI) | payer MEDICARE, OTHER, SELFPAY ==
[2020-03-31 13:46] VITALS: BMI 26.6
--- NOTE | 2021-03-23 10:36 | DI.NM.S_ITS ---
DATE OF SERVICE: PROCEDURE: Exercise stress test. DATE OF STUDY: March 21, 2021. INDICATIONS: Paroxysmal atrial fibrillation, hypertension. CARDIAC STRESS: The patient underwent exercise stress test under the supervision of an attending staff. The patient walked on Drew protocol for 10 minutes and 28 seconds, achieved 103 percent of target heart rate. Baseline blood pressure 120/80 mmHg. Peak blood pressure 200/100 mmHg. Achieved 12.8 METs of workload, ANNAMARIE -30 percent. Baseline rhythm was sinus with some repolarization changes. At peak exercise, patient has about [address] depression in inferior lateral leads, which got resolved within 15 seconds in recovery. The patient had some polymorphic PVCs in recovery as well as some PACs without any sustained ventricular tachycardia or atrial fibrillation. No chest pain or anginal symptoms. CONCLUSION: 1. This is mildly abnormal exercise stress test with [address] depression in inferolateral leads at peak exercise, which got resolved within 15 seconds in recovery. 2. Excellent exercise tolerance. The patient walked on Drew protocol for 10 minutes and 28 seconds with ANNAMAIRE -30 percent and 12.8 METs of workload with mildly hypertensive blood pressure response. Peak blood pressure 200/100 mmHg. No anginal symptoms. Polymorphic PVCs were seen in recovery and some PACs without any sustained ventricular tachycardia or atrial fibrillation. 3. Consider repeat exercise stress test with imaging modality like stress echo or exercise perfusion study for further coronary artery risk stratification. Rosanne Esteban - RENETTA/nati/sherita doc#: [id number]/job#: [id number] dd: 03/22/2021 17:50:00 dt: 03/22/2021 18:25:00 DICTATING MD/COPIES TO: Yahir Birch MD COPIES MNE: TODD;
== END ==
PROVIDERS: PCP Family Medicine; Referring Provider Internal Medicine Cardiovascular Disease; Visit Provider Internal Medicine Cardiovascular Disease
DX: I48.0 Paroxysmal atrial fibrillation (principal); I10 Essential (primary) hypertension; R94.39 Abnormal result of other cardiovascular function study
CPT/HCPCS: 93017

== ENCOUNTER → 2021-06-24 09:04 | Outpatient (CLI) | payer MEDICARE, OTHER, SELFPAY ==
[2020-03-31 13:46] VITALS: BMI 26.6
[2021-06-24 11:31] LABS: COVID19 -Nasal RAPID Negative (Negative)
== END ==
PROVIDERS: PCP Family Medicine; Visit Provider Family Medicine Sleep Medicine
DX: Z20.822 Contact with and (suspected) exposure to COVID-19 (principal)
CPT/HCPCS: 87635; C9803

== ENCOUNTER → 2021-06-27 09:01 | Outpatient (CLI) | payer MEDICARE, OTHER, SELFPAY ==
[2020-03-31 13:46] VITALS: BMI 26.6
--- NOTE | 2021-06-27 15:18 | PM.TREADMILL ---
Cardiac Stress Test Report Referral & Results Date Patient Seen: 06/27/21 Time Patient Seen: 15:18 Requesting provider: Juvenal Pinedo Indication: abnormal ECG Rest ECG: Sinus rhythm Procedure Note: Standard Drew protocol, 11:05, 11.8 MEtS Very good exercise capacity, ANNAMARIE -41% Normal hemodynamic response to exercise No chest pain or anginal symptoms 1.[address] depression in V3-V6 frequent PVCs, bigeminyy, couplets Impression: Equivocal exercise stress test Please note: Actual ECG tracings can be found in the PACS system.
--- NOTE | 2021-06-27 19:09 | DI.NM.S_ITS ---
DATE OF SERVICE: 06/27/2021 PROCEDURE PERFORMED: Exercise treadmill stress and rest myocardial perfusion imaging study with gating to assess ejection fraction and regional wall motion. ORDERING PROVIDER: STEPHEN Beltran. INDICATIONS: The patient is a 66-year-old male with a history of paroxysmal atrial fibrillation with recent atypical chest discomfort. CARDIAC STRESS: The patient was able to exercise for a total of 11 minutes, 5 seconds on a standard Drew protocol, suggesting excellent exercise capacity with an ANNAMARIE of -41%. He had a normal heart rate and blood pressure response to exercise, achieving a maximum heart rate of 161 BPM (105% of his predicted maximum). He had no chest discomfort or other anginal symptoms. His resting ECG shows sinus rhythm with occasional PVCs but normal ST segments. With stress, he developed some mild, nonspecific upsloping ST depressions and PVCs resolved. The ST segments normalized within 1 minute of recovery and thus are nonspecific. He had return of PVCs in the recovery period, at times, in a bigeminal, trigeminal, and quadrigeminal pattern, and rarely in couplets, but no other complex ventricular ectopy. At 9 minutes, 50 seconds of exercise, at a heart rate of 155 BPM, 25.3 millicuries of technetium-99m Myoview was injected and he was imaged 20 minutes later using a gated SPECT acquisition protocol. Earlier in the day while at rest, he had been injected with 11.2 millicuries of technetium-99m Myoview was imaged 30 minutes later, again using a gated SPECT acquisition protocol. FINDINGS: 1. Raw data: There is fairly good myocardial tracer uptake. Lung/heart ratio is at the upper limits of normal at 0.41 with a normal TID ratio of 0.86. 2. Quantitated gated SPECT: Post-stress ejection fraction is estimated at 84% without any focal wall motion abnormality. Resting ejection fraction is estimated at 70%, although visually appears quite similar to that of the post-stress ejection fraction. Resting end-diastolic volume is normal at 109 mL. 3. Myocardial perfusion imaging: Post-stress supine images shows a normal myocardial perfusion pattern without any perfusion defects, supported by normal perfusion imaging in the prone position. IMPRESSION: 1. Normal myocardial perfusion study. 2. No evidence of myocardial ischemia or previous myocardial infarction. 3. Normal left ventricular systolic function without any focal wall motion abnormality. The lung/heart ratio is at the upper limits of normal. 4. Excellent exercise capacity without angina or ECG evidence of ischemia. He had PVCs at rest that returned in recovery but no complex ventricular ectopy. Esteban Lay - MAYUR/nati/leelee doc#: [id number]/job#: [id number] dd: 06/27/2021 16:37:00 dt: 06/27/2021 18:53:00 DICTATING MD/COPIES TO: Jonas Eason MD; Juvenal Pinedo, PAC COPIES MNE: YESENIA;
== END ==
PROVIDERS: PCP Student in an Organized Health Care Education/Training Program; Referring Provider Physician Assistant; Visit Provider Physician Assistant
DX: R94.31 Abnormal electrocardiogram [ECG] [EKG] (principal); R07.89 Other chest pain; I48.0 Paroxysmal atrial fibrillation
CPT/HCPCS: 78452; 93017; A9502